=== PATIENT | female | born 1950 | race African-American/Black ===

== ENCOUNTER 2016-07-05 14:24 | Emergency (ER) | payer MEDICARE, OTHER ==
[~2016-07-05] VITALS: Ht 162.6 cm; Wt 63.5 kg
[2016-07-05 17:08] VITALS: BP 107/77
[2016-07-05] MEDS ORDERED: HYDROmorphone HCL 2 MG/ML VL IM ONE (17:15)
[2016-07-05] MEDS ORDERED: PROMETHAZINE HCL 25 MG/ML 1ML IM ONE (17:15)
== END 2016-07-05 17:55 | disposition home or self-care (01) ==
LOC: ER 14:25
DX: G89.29 Other chronic pain (principal); M54.5 Low back pain; I10 Essential (primary) hypertension
CPT/HCPCS: 72100; 96372; 99284; J1170; J2550